=== PATIENT | male | born 1970 | race Caucasian/White ===

== ENCOUNTER 2017-10-30 16:13 | Emergency (ER) | payer MEDICAID ==
[~2017-10-30] VITALS: Ht 185.4 cm; Wt 97.7 kg
[2017-10-30 16:16] VITALS: BP 147/94
[2017-10-30 16:59] LABS: BASOPHILS # (AUTO) 0.07 x10^3/uL (0-0.1); BASOPHILS % (AUTO) 1 % (0-1); EOSINOPHILS # (AUTO) 0.09 x10^3/uL (0-0.4); EOSINOPHILS % (AUTO) 1 % (1-7); LYMPHOCYTES # (AUTO) 2.05 x10^3/uL (1-3.4); LYMPHOCYTES % (AUTO) 32 % (22-44); MD NO; MEAN CORPUSCULAR HEMOGLOBIN 29.2 pg (27.5-34.5); MEAN CORPUSCULAR VOLUME 88.4 fL (81-97); MEAN PLATELET VOLUME 8.8 fL (7.4-10.4); MONOCYTES # (AUTO) 0.39 x10^3/uL (0.2-0.8); MONOCYTES % (AUTO) 6 % (2-9); NEUTROPHILS # (AUTO) 3.86 x10^3/uL (1.8-6.8); NEUTROPHILS % (AUTO) 60 % (42-75); PLATELET COUNT 312 x10^3/uL (130-400); RED CELL DISTRIBUTION WIDTH 15.5 % (9.4-14.8)
[2017-10-30 17:08] LABS: ALANINE AMINOTRANSFERASE 23 U/L (12-78); ANION GAP 7 mmol/L (5-15); CALCIUM 8.9 mg/dL (8.5-10.1); CHLORIDE 105 mmol/L (98-107); CREATININE 0.72 mg/dL (0.7-1.3)
[2017-10-30 17:10] LABS: ALKALINE PHOSPHATASE 71 U/L (45-117); BILIRUBIN,TOTAL 0.4 mg/dL (0.2-1.0); TOTAL PROTEIN 7.8 g/dL (6.4-8.2)
[2017-10-30 17:11] LABS: ACETAMINOPHEN < 2 mcg/mL (10-30); SALICYLATE LEVEL < 1.7 mg/dL (2.8-20.0)
[2017-10-30] MEDS ORDERED: RISP1TAB45 PO (17:20)
[2017-10-30 17:49] LABS: AMPHETAMINE SCREEN, URINE Negative (Negative); BARBITURATE SCREEN, URINE Negative (Negative); BENZODIAZEPINE SCREEN, URINE Negative (Negative); CANNABINOID SCREEN, URINE Positive (Negative); COCAINE SCREEN, URINE Negative (Negative); METHADONE SCREEN, URINE Negative (Negative); OPIATE SCREEN, URINE Negative (Negative)
== END 2017-10-30 19:08 | disposition home or self-care (01) ==
LOC: ED 19:02
DX: F25.0 Schizoaffective disorder, bipolar type (principal); F15.10 Other stimulant abuse, uncomplicated; F12.10 Cannabis abuse, uncomplicated; Z59.0 Homelessness; Z79.899 Other long term (current) drug therapy
CPT/HCPCS: 36415; 80053; 80307; 80329; 85025; 99284; G0480

== ENCOUNTER 2018-02-13 22:13 | Emergency (ER) | payer MEDICAID ==
[~2018-02-13] VITALS: Ht 185.4 cm; Wt 101.0 kg
[~2018-02-13 22:13] MED LIST: RISP1TAB45 PO
[2018-02-13 22:14] VITALS: BP 164/94
[2018-02-13] MEDS ORDERED: ACETAMINOPHEN 325 MG TABLET ONE ×2 (22:59→23:00)
[2018-02-13] MEDS ORDERED: ACETAMINOPHEN 325 MG TABLET PO ONE (23:00)
== END 2018-02-13 22:51 | disposition home or self-care (01) ==
LOC: ED 22:46
DX: S00.83XA Contusion of other part of head, initial encounter (principal); I10 Essential (primary) hypertension; X58.XXXA Exposure to other specified factors, initial encounter; Y93.89 Activity, other specified; Y92.89 Other specified places as the place of occurrence of the external cause; Y99.8 Other external cause status
CPT/HCPCS: 99282

== ENCOUNTER 2019-07-25 18:18 | Emergency (ER) | payer MEDICAID ==
[~2019-07-25] VITALS: Ht 185.4 cm; Wt 103.8 kg
[2019-07-25 18:42] VITALS: BP 133/79
== END 2019-07-25 19:24 | disposition home or self-care (01) ==
LOC: ED 18:45
DX: J06.9 Acute upper respiratory infection, unspecified (principal)
CPT/HCPCS: 99282

== ENCOUNTER 2020-01-28 06:51 | Emergency (ER) | payer MEDICAID ==
[~2020-01-28] VITALS: Ht 185.4 cm; Wt 110.0 kg
[2020-01-28 06:57] VITALS: BP 120/70
--- NOTE | 2020-01-28 07:38 | NUR ---
CXR TO BEDSIDE, LABS TO BEDSIDE. PT SITTING IN BED, NO SIGNS OF DISTRESS.
--- NOTE | 2020-01-28 07:52 | NUR ---
PT SITTING IN BED, WATCHING TV, NO SIGNS OF DISTRESS.
[2020-01-28 07:53] LABS: BASOPHILS # (AUTO) 0.01 x10^3/uL (0-0.1); BASOPHILS % (AUTO) 0 % (0-1); EOSINOPHILS # (AUTO) 0.14 x10^3/uL (0-0.4); EOSINOPHILS % (AUTO) 1 % (1-7); LYMPHOCYTES # (AUTO) 1.42 x10^3/uL (1-3.4); LYMPHOCYTES % (AUTO) 12 % (22-44); MD NO; MEAN CORPUSCULAR HEMOGLOBIN 29.4 pg (27.5-34.5); MEAN CORPUSCULAR HGB CONC 33.1 g/dL (33.2-36.2); MEAN CORPUSCULAR VOLUME 88.6 fL (81-97); MEAN PLATELET VOLUME 8.4 fL (7.4-10.4); MONOCYTES # (AUTO) 0.65 x10^3/uL (0.2-0.8); MONOCYTES % (AUTO) 6 % (2-9); NEUTROPHILS # (AUTO) 9.56 x10^3/uL (1.8-6.8); NEUTROPHILS % (AUTO) 81 % (42-75); PLATELET COUNT 208 x10^3/uL (130-400); RED BLOOD COUNT 4.55 x10^6/uL (4.38-5.82); RED CELL DISTRIBUTION WIDTH 14.8 % (9.4-14.8)
--- NOTE | 2020-01-28 08:37 | NUR ---
PT CONDITION UNCHANGED. WILL CONTINUE TO MONITOR.
--- NOTE | 2020-01-28 09:26 | NUR ---
TASK RN: PT DISCHARGED HOME IN A STABLE CONDITIONS. DC INSTRUCTIONS WERE DISCUSSED WITH PT. PT VERBALIZED UNDERSTANDING. NO FURTHER QUESTIONS OR CONCERNS WERE EXPRESSED AT THAT TIME. PT AMBULATED OUT OF ED WITH A STEADY GAIT.
== END 2020-01-28 09:28 | disposition home or self-care (01) ==
LOC: ED 07:09
DX: J06.9 Acute upper respiratory infection, unspecified (principal); Z20.828 Contact with and (suspected) exposure to other viral communicable diseases; B34.9 Viral infection, unspecified; F17.210 Nicotine dependence, cigarettes, uncomplicated
CPT/HCPCS: 36415; 71045; 85025; 87081; 87147; 87880; 99284; U0001